=== PATIENT | male | born 1955 | race Caucasian/White ===

== ENCOUNTER 2020-05-08 08:46 | Outpatient (REF) | payer MEDICARE, SELFPAY ==
[2020-05-08 22:01] LABS: Hemoglobin A1C 5.6 % (<5.7)
[2020-05-08 22:12] LABS: ALT 41 U/L (16-63); AST 23 U/L (15-37); Albumin 3.9 g/dL (3.4-5.0); Alkaline Phosphatase 109 U/L (46-116); Anion Gap 8.4 mmol/L (3-11); BUN 16 mg/dL (7-18); Bilirubin, Total 0.4 mg/dL (0.2-1.0); CO2 28.6 mmol/L (21.0-32.0); CREATININE 0.83 mg/dL (0.70-1.30); Calculated LDL 138 mg/dL (<100); Chloride 106 mmol/L (98-107); Cholesterol 206 mg/dL (<200); Glucose 95 mg/dL (74-106); HDL Cholesterol 42 mg/dL (40-60); Potassium 4.6 mmol/L (3.5-5.1); Sodium 143 mmol/L (136-145); Total Protein 6.8 g/dL (6.4-8.2); Triglyceride 130 mg/dL (<150)
== END 2020-05-08 09:06 ==
LOC: NCHCN 08:46
PROVIDERS: PCP Family Medicine; Visit Provider Nurse Practitioner Family
DX: I10 Essential (primary) hypertension (principal); E66.9 Obesity, unspecified; R79.89 Other specified abnormal findings of blood chemistry
CPT/HCPCS: 80053; 80061; 83036

== ENCOUNTER 2020-11-29 20:36 | Outpatient (REF) | payer MEDICARE, SELFPAY ==
[2020-12-03 14:55] LABS: HCV RNA Qualitative Undetected (Undetected)
== END 2020-11-29 20:37 | disposition home or self-care (01) ==
LOC: NCHCN 20:36
PROVIDERS: Nurse Practitioner Family; PCP Family Medicine; Visit Provider Family Medicine
DX: B17.10 Acute hepatitis C without hepatic coma (principal)
CPT/HCPCS: 87522

== ENCOUNTER 2022-03-13 08:13 | Outpatient (REF) | payer MEDICARE, SELFPAY ==
[2022-03-13 15:50] LABS: Anion Gap 11.7 mmol/L (3-11); BUN 17 mg/dL (7-18); CO2 26.3 mmol/L (21.0-32.0); CREATININE 0.8 mg/dL (0.70-1.30); Calcium 8.1 mg/dL (8.5-10.1); Chloride 104 mmol/L (98-107); Glucose 177 mg/dL (74-106); Potassium 3.6 mmol/L (3.5-5.1); Sodium 142 mmol/L (136-145)
== END 2022-03-13 08:14 | disposition home or self-care (01) ==
LOC: NCHCN 08:13
PROVIDERS: PCP Family Medicine; Visit Provider Nurse Practitioner Family
DX: I10 Essential (primary) hypertension (principal); J90 Pleural effusion, not elsewhere classified
CPT/HCPCS: 80048